=== PATIENT | female | born 1985 ===

== ENCOUNTER 2017-08-05 19:19 | Emergency (ER) | payer MEDICAID ==
[2017-08-05 19:19] VITALS: BMI 26.6
[2017-08-05 19:29] VITALS: TEMP 98.3
[2017-08-05 21:02] LABS: BLOOD UREA NITROGEN 14 mg/dl (7-17); CALCIUM 8.9 mg/dL (8.4-10.2); GFR AFRICAN-AMERICAN > 60; GFR NON-AFRICAN AMERICAN > 60
--- NOTE | 2017-08-05 21:02 | ED PDOC ---
HPI: Chest Pain Time Seen by Provider: 08/05/17 20:04 Chief Complaint (Nursing): Chest Pain Chief Complaint (Provider): Chest pain History Per: Patient Onset/Duration Of Symptoms: Days (3), Persistent Current Symptoms Are (Timing): Gone Now Severity: Moderate Quality: "Pain" Associated Symptoms: denies: Nausea, Dyspnea, Diaphoresis, Syncope Exacerbating Factors: Movement Additional Complaint(s): 31 y/o female with a three day history of left sided chest pain that was initially intermittent and worsened with movement, though it was constant today. On arrival to the ED, her pain resolved completely. Patient denies any shortness of breath, pain radiation, or other complaint associated with the pain. Of note, she reports a history of anxiety but denies feeling anxious at this time. There are no other complaints at this time. Past Medical History Vital Signs: Last Vital Signs Temp 98.3 F 08/05/17 19:28 Pulse 60 08/05/17 22:18 Resp 18 08/05/17 22:18 BP 106/72 08/05/17 22:18 Pulse Ox 99 08/05/17 22:18 - Medical History PMH: Anxiety - Family History Family History: States: Unknown Family Hx - Home Medications Home Medications: Ambulatory Orders Medication Instructions Recorded Doxycycline Hyclate 100 mg PO BID #14 capsule 10/03/16 - Allergies Allergies/Adverse Reactions: Allergies Allergy/AdvReac Type Severity Reaction Status Date / Time No Known Allergies Allergy Verified 10/02/16 22:28 Review of Systems ROS Statement: Except As Marked, All Systems Reviewed And Found Negative Cardiovascular: Positive for: Chest Pain Physical Exam - Reviewed Nursing Documentation Reviewed: Yes Vital Signs Reviewed: Yes - Physical Exam Appears: Positive for: Well, Non-toxic, No Acute Distress Head Exam: Positive for: ATRAUMATIC, NORMAL INSPECTION, NORMOCEPHALIC Skin: Positive for: Normal Color, Warm, DRY Eye Exam: Positive for: EOMI, Normal appearance, PERRL ENT: Positive for: Normal ENT Inspection Neck: Positive for: Normal, Painless ROM Cardiovascular/Chest: Positive for: Regular Rate, Rhythm Respiratory: Positive for: CNT, Normal Breath Sounds Gastrointestinal/Abdominal: Positive for: Normal Exam, Bowel Sounds, Soft Back: Positive for: Normal Inspection Extremity: Positive for: Normal ROM Neurologic/Psych: Positive for: Alert, Oriented - Laboratory Results Result Diagrams: 08/05/17 20:37 08/05/17 20:37 - ECG ECG: Positive for: Interpreted By Me, Viewed By Me ECG Rhythm: Positive for: Normal QRS, Normal ST Segment, Sinus Rhythm Interpretation Of ECG: NSR no ST elevation O2 Sat by Pulse Oximetry: 100 Medical Decision Making Medical Decision Making: Impression: Musculoskeletal Chest pain Plan: - CXR - Labs 2200 Pt. reports she felt well throughout visit, reports no pain. Workup negative, advised patient to f/u w/ PMD. Return precautions discussed. Scribe Attestation: Documented by Gemma Sorenson, acting as a scribe for Kevon Vee MD. Provider Scribe Attestation: All medical record entries made by the Scribe were at my direction and personally dictated by me. I have reviewed the chart and agree that the record accurately reflects my personal performance of the history, physical exam, medical decision making, and the department course for this patient. I have also personally directed, reviewed, and agree with the discharge instructions and disposition. Disposition - Clinical Impression Clinical Impression: Chest wall pain - Disposition Referrals: Inge Basilio MD [Family Provider] - Disposition Time: 22:00 Condition: STABLE Additional Instructions: Please followup with Dr. Basilio in 2 -3 days or return to ER for worsening symptoms. Instructions: Chest Pain That Is Not Caused by the Heart (DC) Forms: [facility] (Irish)
[2017-08-05 21:33] LABS: MEAN CELL VOLUME 96.7 fl (81.0-99.0); MEAN CORPUSCULAR HEMOGLOBIN 31.4 pg (27.0-31.0); MEAN CORPUSCULAR HGB CONC 32.4 g/dL (33.0-37.0); RBC 4.16 Mil/uL (3.80-5.20); RED CELL DISTRIBUTION WIDTH 13.2 % (11.5-14.5); WHITE BLOOD COUNT 4.2 K/uL (4.8-10.8)
[2017-08-05 22:21] VITALS: BP 106/72; PULSE 60; RESP 18
[2017-08-06 03:06] VITALS: O2SAT 100
--- NOTE | 2017-08-06 08:52 | RAD ---
HISTORY: CP COMPARISON: Chest radiograph dated 01/14/2016. TECHNIQUE: Chest PA and lateral FINDINGS: LUNGS: No active pulmonary disease. PLEURA: No significant pleural effusion identified. No pneumothorax apparent. CARDIOVASCULAR: Normal. OSSEOUS STRUCTURES: No significant abnormalities. VISUALIZED UPPER ABDOMEN: Normal. OTHER FINDINGS: None. IMPRESSION: No active disease.
== END 2017-08-05 22:21 | disposition home or self-care (01) ==
LOC: H.ER 19:19
DX: R07.89 Other chest pain (principal); F41.9 Anxiety disorder, unspecified

== ENCOUNTER 2018-01-05 11:20 | Emergency (ER) | payer MEDICAID ==
[2018-01-05 11:20] VITALS: BMI 26.6
[2018-01-05 11:25] VITALS: RESP 18; O2SAT 99
[2018-01-05] MEDS ORDERED: Sodium Chloride 0.9% 1,000 ML IV STA (11:51)
--- NOTE | 2018-01-05 11:54 | ED PDOC ---
HPI: Abdomen Time Seen by Provider: 01/05/18 11:47 Chief Complaint (Nursing): Abdominal Pain History Per: Patient Onset/Duration Of Symptoms: Days (2) Current Symptoms Are (Timing): Still Present Severity: Moderate Location Of Pain/Discomfort: RUQ Quality Of Discomfort: Sharp Associated Symptoms: Fever, Nausea. denies: Vomiting, Diarrhea, Urinary Symptoms Exacerbating Factors: None Alleviating Factors: None Additional Complaint(s): Sharp RUQ abd pain x 2 days. Had fever last night. No vomiting or diarrhea. No urinary sxs Past Medical History Vital Signs: Last Vital Signs Temp 98.0 F 01/05/18 11:24 Pulse 62 01/05/18 11:24 Resp 18 01/05/18 11:24 BP 96/55 L 01/05/18 11:24 Pulse Ox 99 01/05/18 11:54 - Medical History PMH: Anxiety, Gall Bladder Disease - Family History Family History: States: Unknown Family Hx - Home Medications Home Medications: Ambulatory Orders Medication Instructions Recorded traMADol [Ultram] 50 mg PO Q8 #10 tab 01/05/18 - Allergies Allergies/Adverse Reactions: Allergies Allergy/AdvReac Type Severity Reaction Status Date / Time No Known Allergies Allergy Verified 01/05/18 11:35 Review of Systems ROS Statement: Except As Marked, All Systems Reviewed And Found Negative Constitutional: Positive for: Fever Gastrointestinal: Positive for: Nausea, Abdominal Pain Physical Exam - Reviewed Nursing Documentation Reviewed: Yes Vital Signs Reviewed: Yes - Physical Exam Appears: Positive for: Non-toxic, No Acute Distress Head Exam: Positive for: ATRAUMATIC, NORMAL INSPECTION, NORMOCEPHALIC Skin: Positive for: Normal Color, Warm, DRY Eye Exam: Positive for: EOMI, Normal appearance, PERRL ENT: Positive for: Normal ENT Inspection Neck: Positive for: Normal, Painless ROM Cardiovascular/Chest: Positive for: Regular Rate, Rhythm Respiratory: Positive for: CNT, Normal Breath Sounds Gastrointestinal/Abdominal: Positive for: Soft, Tenderness (RUQ) Back: Positive for: Normal Inspection Extremity: Positive for: Normal ROM Neurologic/Psych: Positive for: Alert, Oriented - Laboratory Results Result Diagrams: 01/05/18 11:53 01/05/18 11:53 - ECG O2 Sat by Pulse Oximetry: 99 Disposition - Clinical Impression Clinical Impression: Gallstones - Patient ED Disposition Is Patient to be Admitted: No Counseled Patient/Family Regarding: Studies Performed, Diagnosis, Need For Followup, Rx Given - Disposition Referrals: Erickson Valentin MD [Staff Provider] - Disposition: Routine/Home Disposition Time: 15:35 Condition: FAIR Prescriptions: traMADol [Ultram] 50 mg PO Q8 #10 tab Instructions: Gallstones Forms: [facility] (Eth[place]ian)
[2018-01-05 12:22] LABS: BASO % 0.8 % (0.0-2.0); EOS # 0.1 K/uL (0.0-0.7); EOS % 2.2 % (0.0-4.0); LYMPH # 1.9 K/uL (1.0-4.3); LYMPH % 48.1 % (20.0-40.0); MEAN CELL VOLUME 96.2 fl (81.0-99.0); MEAN CORPUSCULAR HEMOGLOBIN 32.2 pg (27.0-31.0); MEAN CORPUSCULAR HGB CONC 33.5 g/dL (33.0-37.0); MEAN PLATELET VOLUME 10.6 fl (7.2-11.7); MONO # 0.4 K/uL (0.0-0.8); MONO % 9.1 % (0.0-10.0); NEUT # 1.6 K/uL (1.8-7.0); NEUT % 39.8 % (50.0-75.0); NRBC % 0.1 % (0.0-0.0); RBC 4.03 Mil/uL (3.80-5.20); RED CELL DISTRIBUTION WIDTH 12.9 % (11.5-14.5); WHITE BLOOD COUNT 3.9 K/uL (4.8-10.8)
[2018-01-05 12:28] LABS: ALB/GLOB RATIO 1.3 (1.0-2.1); ALBUMIN 4.3 g/dL (3.5-5.0); ALT/SGPT 20 U/L (9-52); AST/SGOT 22 U/L (14-36); BLOOD UREA NITROGEN 14 mg/dl (7-17); CALCIUM 8.9 mg/dL (8.4-10.2); GFR AFRICAN-AMERICAN > 60; GFR NON-AFRICAN AMERICAN > 60; LIPASE 76 U/L (23-300)
--- NOTE | 2018-01-05 14:11 | US ---
Date of service: 01/05/2018 HISTORY: RUQ pain COMPARISON: None. TECHNIQUE: Sonographic evaluation of the right upper quadrant of the abdomen. FINDINGS: LIVER: Measures 16 cm in length. Normal echogenicity of the liver parenchyma. No mass. No intrahepatic bile duct dilatation. GALLBLADDER: Gallbladder is not distended. Instead there multiple echogenicities within the gallbladder fossa Stella bowl with a gallbladder filled with multiple shadowing gallstones. Evaluation the gallbladder wall is impeded due to the nondistended status and the confounding multiple shadowing gallstones in the non distended gallbladder. No positive sonographic Russo sign is referenced by the examining technologist. COMMON BILE DUCT: Measures 3 mm -difficult to visualize. No stones. No dilatation. PANCREAS: Unremarkable as visualized. No mass. No ductal dilatation. RIGHT KIDNEY: Measures 11.0 x 6.1 x 4.4 cm in length. Normal echogenicity. No calculus, mass, or hydronephrosis. AORTA: No aneurysmal dilatation. IVC: Unremarkable. OTHER FINDINGS: None . IMPRESSION: Innumerable shadowing gallstones within a contracted/ nondistended gallbladder. No dilated ducts.No positive sonographic Russo sign is referenced by the examining technologist. Clinical follow-up recommended.
[2018-01-05] MEDS ORDERED: Insulin Regular 100 units/ml SC STA (14:33)
[2018-01-05 15:35] VITALS: BP 110/59; PULSE 69; TEMP 98.5
== END 2018-01-05 15:40 | disposition home or self-care (01) ==
LOC: H.ER 11:20
DX: K80.20 Calculus of gallbladder without cholecystitis without obstruction (principal); F41.9 Anxiety disorder, unspecified
CPT/HCPCS: 76705; 80053; 81025; 83690; 85025; 96360; 96361; 99284; J7030